=== PATIENT | male | born 1955 | race Caucasian/White ===

== ENCOUNTER 2016-11-23 16:44 | Emergency (ER) | payer OTHER ==
[2016-11-23] MEDS ORDERED: NORMAL SALINE 1000 ML 1,000 ML IV ONE (17:19)
[2016-11-23] MEDS ORDERED: ACETAMINOPHEN 325 MG TABLET PO ONE (17:19)
--- NOTE | 2016-11-23 17:21 | ER Document Report ---
ED Medical Screen (RME) - General Chief Complaint: Urinary Problem Stated Complaint: URINATION CONCERNS Time Seen by Provider: 11/23/16 17:02 Information source: Patient TRAVEL OUTSIDE OF THE [place] IN LAST 30 DAYS: No - HPI Patient complains to provider of: dysuria Notes: 11/23/16 17:20 61-year-old male who presents to the emergency room from [facility] for complaints of frequent painful urination that started yesterday with fever and chills, back pain, as well as nausea, he denies any vomiting or diarrhea, he has a history of prostatitis in the past as well as sepsis from urinary related complaints - Related Data Allergies/Adverse Reactions: Penicillins Allergy (Verified 11/23/16 17:14) Past Medical History Renal/ Medical History: Denies: Hx Peritoneal Dialysis Physical Exam - Vital signs Vitals: Temp Pulse Resp BP Pulse Ox 100 F 107 H 16 140/78 H 96 11/23/16 16:51 11/23/16 16:51 11/23/16 16:51 11/23/16 16:51 11/23/16 16:51 Course - Vital Signs Vital signs: Temp Pulse Resp BP Pulse Ox 100 F 107 H 16 140/78 H 96 11/23/16 16:51 11/23/16 16:51 11/23/16 16:51 11/23/16 16:51 11/23/16 16:51
[2016-11-23 18:23] LABS: VENOUS BLOOD BASE EXCESS -1.5 mmol/L; VENOUS BLOOD HCO3 20.7 mmol/L (20-32); VENOUS BLOOD PCO2 28.9 mmHg (35-63); VENOUS BLOOD PH 7.47 (7.30-7.42)
[2016-11-23 18:29] LABS: APPEARANCE,URINE SLIGHTLY-CLOUDY; BILIRUBIN,URINE NEGATIVE (NEGATIVE); GLUCOSE, URINE 50 mg/dL (NEGATIVE); KETONES,URINE NEGATIVE (NEGATIVE); LEUKOCYTE ESTERASE,URINE MODERATE (NEGATIVE); NITRITE,URINE NEGATIVE (NEGATIVE); PROTEIN,URINE NEGATIVE (NEGATIVE); URINE SPECIFIC GRAVITY 1.024; UROBILINOGEN,URINE NEGATIVE mg/dL (<2.0)
[2016-11-23 18:31] LABS: PROTHROMBIN TIME 13.7 SEC (11.4-15.4)
[2016-11-23 18:36] LABS: HEMATOCRIT 43.3 % (37.9-51.0); HEMOGLOBIN 14.5 g/dL (13.5-17.0); HGB HCT DIFFERENCE 0.2; MEAN CORPUSCULAR HEMOGLOBIN 29.6 pg (27.0-33.4); MEAN CORPUSCULAR HGB CONC 33.6 g/dL (32.0-36.0); MEAN CORPUSCULAR VOLUME 88 fl (80-97); RED BLOOD COUNT 4.91 10^6/uL (4.35-5.55); RED CELL DISTRIBUTION WIDTH 13.8 % (11.5-14.0); WHITE BLOOD COUNT 16.3 10^3/uL (4.0-10.5)
[2016-11-23 18:39] LABS: ALANINE AMINOTRANSFERASE 30 U/L (21-72); ALKALINE PHOSPHATASE 65 U/L (38-126); ANION GAP 13 (5-19); ASPARTATE AMINO TRANSFERASE 26 U/L (17-59); BILIRUBIN,DIRECT 0.2 mg/dL (0.0-0.4); BLOOD UREA NITROGEN 15 mg/dL (7-20); CALCIUM 9.1 mg/dL (8.4-10.2); CARBON DIOXIDE 20 mmol/L (22-30); CHLORIDE 104 mmol/L (98-107); GLUCOSE 116 mg/dL (75-110); POTASSIUM 3.5 mmol/L (3.6-5.0); SODIUM 136.7 mmol/L (137-145); TOTAL PROTEIN 6.8 g/dL (6.3-8.2)
[2016-11-23 18:50] LABS: BAND NEUTROPHILS % (MANUAL) 3 % (3-5); BASOPHILS % (MANUAL) 0 % (0-2); EOSINOPHILS % (MANUAL) 1 % (0-6); LYMPHOCYTES % (MANUAL) 1 % (13-45); TOTAL CELLS COUNTED 100
[2016-11-23 18:51] LABS: HYPOCHROMASIA SLIGHT
[2016-11-23] MEDS ORDERED: LEVOFLOXACIN 500 MG TABLET PO ONE (19:32)
--- NOTE | 2016-11-23 19:49 | ER Document Report ---
ED General - General Chief Complaint: Urinary Problem Stated Complaint: URINATION CONCERNS Time Seen by Provider: 11/23/16 17:02 Notes: Patient is a 61-year-old male with past medical history of recurrent urinary tract infections or recurrent prostatitis who does follow with the urologist who presents with 2 days of chills, diffuse aching and severe pain with urination. Pain is described as a severe, burning pain with urination but is not present except when he is urinating. States this feels similar when he had prostatitis in the past. He was seen at an urgent care and referred to the emergency department for further evaluation given his overall appearance at that time. Nothing is been noted to improve or worsen his symptoms. He denies any flank pain, vomiting, or difficulty tolerating oral intake. No cough or shortness of breath. TRAVEL OUTSIDE OF THE [place] IN LAST 30 DAYS: No - Related Data Allergies/Adverse Reactions: Penicillins Allergy (Verified 11/23/16 17:14) Past Medical History - General Information source: Patient - Social History Smoking Status: Never Smoker Chew tobacco use (# tins/day): No Frequency of alcohol use: None Drug Abuse: None Lives with: Spouse/Significant other Family History: Reviewed & Not Pertinent Renal/ Medical History: Denies: Hx Peritoneal Dialysis Past Surgical History: Reports: Hx Orthopedic Surgery Review of Systems - Review of Systems Notes: Constitutional: Negative for fever. Positive for chills HENT: Negative for sore throat. Eyes: Negative for visual changes. Cardiovascular: Negative for chest pain. Respiratory: Negative for shortness of breath. Gastrointestinal: Negative for abdominal pain, vomiting or diarrhea. Genitourinary: Positive for dysuria. Musculoskeletal: Negative for back pain. Skin: Negative for rash. Neurological: Negative for headaches, weakness or numbness. 10 point ROS negative except as marked above and in HPI. Physical Exam - Vital signs Vitals: Temp Pulse Resp BP Pulse Ox 100 F 107 H 16 140/78 H 96 11/23/16 16:51 11/23/16 16:51 11/23/16 16:51 11/23/16 16:51 11/23/16 16:51 Interpretation: Tachycardic Notes: PHYSICAL EXAMINATION: GENERAL: Well-appearing, well-nourished and in no acute distress. HEAD: Atraumatic, normocephalic. EYES: Pupils equal round and reactive to light, extraocular movements intact, sclera anicteric, conjunctiva are normal. ENT: nares patent, oropharynx clear without exudates. Moderately dry mucous membranes. NECK: Normal range of motion, supple without lymphadenopathy LUNGS: Breath sounds clear to auscultation bilaterally and equal. No wheezes rales or rhonchi. HEART: Regular rate and rhythm without murmurs ABDOMEN: Soft, nontender, normoactive bowel sounds. No guarding, no rebound. No masses appreciated. EXTREMITIES: Normal range of motion, no pitting or edema. No cyanosis. NEUROLOGICAL: No focal neurological deficits. Moves all extremities spontaneously and on command. PSYCH: Normal mood, normal affect. SKIN: Warm, Dry, normal turgor, no rashes or lesions noted. Course - Re-evaluation Re-evalutation: 11/23/16 19:46 Patient presents with signs and symptoms most consistent with acute prostatitis versus possible pyelonephritis. Patient's urine is grossly contaminated, although no white blood cell clumps. He has no flank tenderness. He has had constitutional symptoms and dysuria. He has a history of recurrent prostatitis. No focal abdominal pain on examination. I do not suspect an acute appendicitis, biliary pathology, bowel obstruction or bowel perforation. No history to suggest an acute nephrolithiasis. He will be started on levofloxacin for the next 14 days and will be encouraged to follow-up with his urologist. At this time will discharge with return precautions and follow-up recommendations. Verbal discharge instructions given a the bedside and opportunity for questions given. Medication warnings reviewed. Patient is in agreement with this plan and has verbalized understanding of return precautions and the need for primary care follow-up in the next 24-72 hours. - Vital Signs Vital signs: Temp Pulse Resp BP Pulse Ox 98.4 F 87 12 120/78 94 11/23/16 20:01 11/23/16 20:01 11/23/16 20:01 11/23/16 20:01 11/23/16 20:01 - Laboratory Result Diagrams: 11/23/16 18:00 11/23/16 18:00 Laboratory results interpreted by me: 11/23/16 11/23/16 11/23/16 18:00 18:00 18:00 WBC 16.3 H Seg Neuts % (Manual) 88 H Lymphocytes % (Manual) 1 L Abs Neuts (Manual) 14.8 H Abs Lymphs (Manual) 0.2 L VBG pH 7.47 H VBG pCO2 28.9 L Sodium 136.7 L Potassium 3.5 L Carbon Dioxide 20 L Glucose 116 H Urine Glucose (UA) Urine Blood Ur Leukocyte Esterase 11/23/16 18:00 WBC Seg Neuts % (Manual) Lymphocytes % (Manual) Abs Neuts (Manual) Abs Lymphs (Manual) VBG pH VBG pCO2 Sodium Potassium Carbon Dioxide Glucose Urine Glucose (UA) 50 H Urine Blood MODERATE H Ur Leukocyte Esterase MODERATE H Discharge - Discharge Clinical Impression: Prostatitis Qualifiers: Prostatitis type: unspecified Qualified Code(s): N41.9 - Inflammatory disease of prostate, unspecified Condition: Good Disposition: HOME, SELF-CARE Instructions: Prostatitis (OM) Additional Instructions: Your being treated for an infection of your prostate. Please take all of the antibiotics until they are gone. Do not stop them even if you are feeling better. This infection can be related to multiple bacteria including sexually transmitted infections but can also be related to normal intestinal bacteria such as E. coli. Please return if you develop a fever greater than 101F, have persistent vomiting, pass out, worsening of your pain, become unable to urinate , or have any other symptoms that are worrisome to you. For your pain: Take ibuprofen 600 mg and acetaminophen 1000 mg every 6 hours together as needed. Prescriptions: Levofloxacin 500 mg PO DAILY #13 tab Forms: Return to Work Referrals: TAMMI TEJADA MD [Primary Care Provider] - Follow up as needed
[2016-11-23 20:05] VITALS: BP 120/78
--- NOTE | 2016-11-24 10:24 | EKG REPORT ---
SEVERITY:- BORDERLINE ECG - SINUS RHYTHM BORDERLINE T WAVE ABNORMALITIES : Confirmed by: Michelle Santiago MD 24-Nov-2016 10:22:42
== END 2016-11-23 20:05 | disposition home or self-care (01) ==
LOC: ER 16:44
DX: N41.9 Inflammatory disease of prostate, unspecified (principal); R68.83 Chills (without fever); R30.0 Dysuria; Z87.440 Personal history of urinary (tract) infections; Z88.0 Allergy status to penicillin
CPT/HCPCS: 93005; 99283; 96360; 36415; 87040; 87086; 85025; 85610; 80053; 81001; 82803; 83605; 93010; J7030

== ENCOUNTER → 2017-06-09 | Outpatient (CLI) | payer OTHER ==
--- NOTE | 2017-06-09 12:22 | RADIOLOGY REPORT (SQ) ---
EXAM DESCRIPTION: CHEST PA/LATERAL COMPLETED DATE/TIME: 06/09/2017 12:01 pm REASON FOR STUDY: COUGH COMPARISON: 06/05/2009 NUMBER OF VIEWS: Two view. TECHNIQUE: Frontal and lateral radiographic views of the chest acquired. LIMITATIONS: None. FINDINGS: LUNGS AND PLEURA: No opacities, masses or pneumothorax. No pleural effusion. MEDIASTINUM AND HILAR STRUCTURES: No masses or contour abnormalities. HEART AND VASCULATURE: Heart normal size. No evidence for failure. BONY STRUCTURES: No acute findings. HARDWARE: None. OTHER: No other significant finding. IMPRESSION: NO SIGNIFICANT RADIOGRAPHIC FINDING IN THE CHEST. TECHNICAL DOCUMENTATION: JOB ID: [id number] [employer]- All Rights Reserved
== END ==
LOC: OD 11:52
PROVIDERS: ATTEND Physician Assistant
DX: R05 Cough (principal)
CPT/HCPCS: 71046

== ENCOUNTER → 2017-06-19 | Outpatient (CLI) | payer OTHER ==
--- NOTE | 2017-06-19 14:22 | RADIOLOGY REPORT (SQ) ---
EXAM DESCRIPTION: CHEST PA/LATERAL COMPLETED DATE/TIME: 06/19/2017 2:06 pm REASON FOR STUDY: COUGH COMPARISON: Two-view chest 06/09/2017, 06/05/2009 EXAM PARAMETERS: NUMBER OF VIEWS: two views TECHNIQUE: Digital Frontal and Lateral radiographic views of the chest acquired. RADIATION DOSE: NA LIMITATIONS: none FINDINGS: LUNGS AND PLEURA: No opacities, masses or pneumothorax. No pleural effusion. MEDIASTINUM AND HILAR STRUCTURES: No masses or contour abnormalities. HEART AND VASCULAR STRUCTURES: Heart normal size. No evidence for failure. BONES: No acute findings. HARDWARE: None in the chest. OTHER: No other significant finding. IMPRESSION: NO SIGNIFICANT RADIOGRAPHIC FINDING IN THE CHEST. TECHNICAL DOCUMENTATION: JOB ID: [id number] [employer]- All Rights Reserved
== END ==
LOC: OD 13:52
PROVIDERS: ATTEND Physician Assistant
DX: R05 Cough (principal)
CPT/HCPCS: 71046